=== PATIENT | male | born 1965 ===

== ENCOUNTER 2019-06-30 06:51 | Emergency (ER) ==
[~2019-06-30] VITALS: Ht 157.5 cm; Wt 63.6 kg
[2019-06-30] MEDS ORDERED: ZITHROMAX 250M250 MG PO ×2 (07:49→09:05)
[2019-06-30 09:24] LABS: STREP SCREEN NEGATIVE
== END 2019-06-30 09:12 | disposition home or self-care (01) ==
LOC: COL.ER 06:51 → EDSEX 06:53 → COL.ER 06:53
PROVIDERS: Emergency Medicine
DX: J06.9 Acute upper respiratory infection, unspecified (principal)